=== PATIENT | female | born 1965 | race Caucasian/White ===

== ENCOUNTER 2022-11-27 12:52 | Emergency (ER) | payer OTHER ==
[2022-11-27] VITALS (9 sets, daily range): BP systolic 99–125; BP diastolic 58–77
[2022-11-27] MEDS ORDERED: PROTONIX40 M2 PO (13:26)
[2022-11-27 13:40] LABS: URINE BILIRUBIN - DIPSTICK NEGATIVE (NEGATIVE); URINE BLOOD DIPSTICK NEGATIVE (NEGATIVE); URINE COLOR YELLOW; URINE GLUCOSE - DIPSTICK NEGATIVE (NEGATIVE); URINE KETONE TRACE mg/dL (NEGATIVE); URINE LEUK ESTERASE NEGATIVE (NEGATIVE); URINE PROTEIN - DIPSTICK NEGATIVE (NEG-TRACE); URINE UROBILINOGEN - DIPSTICK 0.2 E.U./dL (0.2)
[2022-11-27 13:42] LABS: URINE NITRITE - DIPSTICK NEGATIVE (Negative)
[2022-11-27 13:46] LABS: BASO% 0.4 % (0-3); EOS% 0.2 % (0-8); HEMOGLOBIN 11.1 g/dl (12.0-16.0); IMMATURE GRANULOCYTES 0.9 % (0.0-5.0); LYMPH% 11.9 % (15-41); MEAN CELL VOLUME 95.1 fL CALC (80.0-100.0); MEAN CORPUSCULAR HGB CONC 33.6 g/dL CAL (32.0-36.0); MONO% 19.7 % (2-13); NEUT# 3.02 thou/uL (2.00-7.15); NEUT% 66.9 % (42-76); RED BLOOD COUNT 3.47 mill/uL (4.20-5.60); RED CELL DISTRI WIDTH 12.5 % (11.5-15.5)
[2022-11-27 13:49] LABS: ALBUMIN 3.7 g/dL (3.2-5.0); BILIRUBIN, TOTAL 0.4 mg/dL (0.02-1.3); CREATININE 1.3 mg/dL (0.5-1.0); POTASSIUM 3.3 mmol/l (3.5-5.1); TOTAL PROTEIN 6.1 g/dL (6.3-8.2)
== END 2022-11-27 15:03 | disposition home or self-care (01) | DRG 312 ==
LOC: ED 12:52
PROVIDERS: Nurse Practitioner
DX: R55 Syncope and collapse (principal); U07.1 COVID-19; E86.0 Dehydration; E87.6 Hypokalemia